=== PATIENT | male | born 1975 | race Caucasian/White ===

== ENCOUNTER → 2021-07-16 | Outpatient (CLI) | payer OTHER ==
--- NOTE | 2021-07-16 11:29 | CONS ---
CONSULTATION DATE OF SERVICE: 07/16/2021 This 46-year-old gentleman has been evaluated in Sleep Center for possible obstructive sleep apnea-hypopnea syndrome. 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 Consequently his sleep schedule on weekdays is from 10 a.m. until 2 p.m. and on weekends from 10 p.m. until around 3 a.m. Sometimes he has problems with falling asleep, has TV set in bedroom. He usually sleeps on the side position. He has loud snoring. He wakes up from sleep two times with up to two episodes of nocturia. No history of hypnagogic hallucinations, sleep paralysis or cataplexy. The patient feels sleepiness. [place] Sleepiness Scale increased to 10. He takes one nap around 7 or 8 p.m. because, again, he is a night-shift worker. He does feel refreshed after nap. No vivid dreams during naps. PAST MEDICAL HISTORY: Positive for increasing blood sugar, hyperlipidemia, obesity. PAST SURGICAL HISTORY: Left leg surgery for fracture of fibula. MEDICATIONS: 1. Atorvastatin 80 mg once a day. 2. Metformin 500 mg once a day. 3. Gemfibrozil 600 mg twice a day. SOCIAL HISTORY: Positive for 28-year pack/smoking; quit in 2019. Alcohol consumption: None at the present time. FAMILY HISTORY: Hypertension, diabetes, acid reflux, asthma, heart problems. REVIEW OF SYSTEMS: Multiple awakenings from sleep, sleepiness during the day. Loud snoring. No fevers. No double vision. No recent chest pain. No shortness of breath. No abdominal pain. No bleeding episodes. No blood in the urine. No seizure episodes. PHYSICAL EXAMINATION: GENERAL: Pleasant gentleman without distress. VITAL SIGNS: BP 135/89, HR 100, RR 15, height 5 feet 7 inches, weight 223, BMI 34.4, temperature 98.1. Neck size 17 inches in circumference and position of soft palate extremely low Mallampati 4. NECK: Supple, no JVD. Thyroid is not palpable. LUNGS: Clear to percussion and to auscultation. Good air exchange. No wheezing or rhonchi. HEART: S1, S2 regular. No murmurs, gallops, or rubs. ABDOMEN: Obese. Soft and nontender. Bowel sounds are present. No organomegaly appreciated. EXTREMITIES: No clubbing or cyanosis. BRASS PICKLER: Awake, alert, and oriented X3. Cranial nerves 2 to 7 intact. There is no fasciculation or atrophy. noted. No focal deficits observed. IMPRESSION: 1. Loud snoring, multiple awakenings from sleep, extremely low position of soft palate, Mallampati 4, wide neck, 17 inches in circumference, sleepiness. [place] Sleepiness Scale is 10, obstructive sleep apnea-hypopnea syndrome. 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 3. Obesity, BMI 34.4. 4. Increased blood sugar. 5. Diabetes mellitus. 6. Hyperlipidemia. 7. Status post left leg surgery for fracture of fibula several years ago. PLAN: 1. Polysomnography for evaluation of patient's breathing during sleep. 2. CPAP/BiPAP titration if sleep study confirms obstructive sleep apnea-hypopnea syndrome. 3. Preferable position during sleep on the side. 4. No driving if patient feels any sleepiness. 5. I will see patient for follow up visit to explain results of testing and following plan. Thank you very much for referring this patient for consultation. MMODL / IJN: [id number] /
--- NOTE | 2021-07-16 11:39 | CONS ---
CONSULTATION ADDENDUM: PHYSICAL EXAM: Neck size 17 inches in circumference and position of soft palate extremely low Mallampati 4. NECK: Supple, no JVD. Thyroid is not palpable. LUNGS: Clear to percussion and to auscultation. Good air exchange. No wheezing or rhonchi. HEART: S1, S2 regular. No murmurs, gallops, or rubs. ABDOMEN: Obese. Soft and nontender. Bowel sounds are present. No organomegaly appreciated. EXTREMITIES: No clubbing or cyanosis. RADIO TALK SHOW HOST: Awake, alert, and oriented X3. Cranial nerves 2 to 7 intact. There is no fasciculation or atrophy. noted. No focal deficits observed. IMPRESSION: 1. Loud snoring, multiple awakenings from sleep, extremely low position of soft palate, Mallampati 4, wide neck, 17 inches in circumference, sleepiness. Clarinda Sleepiness Scale is 10, obstructive sleep apnea-hypopnea syndrome. 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 3. Obesity, BMI 34.4. 4. Increased blood sugar. 5. Diabetes mellitus. 6. Hyperlipidemia. 7. Status post left leg surgery for fracture of fibula several years ago. PLAN: 1. Polysomnography for evaluation of patient's breathing during sleep. 2. CPAP/BiPAP titration if sleep study confirms obstructive sleep apnea-hypopnea syndrome. 3. Preferable position during sleep on the side. 4. No driving if patient feels any sleepiness. 5. I will see patient for follow up visit to explain results of testing and following plan. Thank you very much for referring this patient for consultation. Sincerely, Marco Platt MD, PhD, FAASM Diplomat of [place] [employer] Sleep Medicine Board of [place] Food Supervisor of [facility] [place] MMODL / AMENAN: [id number] /
== END ==
LOC: SLEEP 10:22
PROVIDERS: ATTEND Internal Medicine
DX: G47.33 Obstructive sleep apnea (adult) (pediatric) (principal); E66.9 Obesity, unspecified; Z68.34 Body mass index [BMI] 34.0-34.9, adult; E11.9 Type 2 diabetes mellitus without complications; E78.5 Hyperlipidemia, unspecified; Z98.890 Other specified postprocedural states; Z87.81 Personal history of (healed) traumatic fracture; Z79.84 Long term (current) use of oral hypoglycemic drugs; Z79.899 Other long term (current) drug therapy; Z87.891 Personal history of nicotine dependence
CPT/HCPCS: 99211

== ENCOUNTER → 2021-07-30 | Outpatient (CLI) | payer OTHER ==
--- NOTE | 2021-07-30 11:08 | XR ---
EXAMINATION TYPE: XR chest 2V DATE OF EXAM: 07/30/2021 COMPARISON: NONE TECHNIQUE: PA and lateral views submitted. HISTORY: Abnormal lung sounds FINDINGS: Subsegmental changes at both lung bases. No pleural effusion or pneumothorax. Heart size normal. Hype rtrophic and degenerative change the spine. No overt failure. IMPRESSION: 1. Basilar atelectasis or early infiltrate correlate clinically.
== END | disposition home or self-care (01) ==
LOC: RADXRMAIN 10:35
PROVIDERS: ATTEND Family Medicine
DX: M54.2 Cervicalgia (principal); R09.89 Other specified symptoms and signs involving the circulatory and respiratory systems
CPT/HCPCS: 71046

== ENCOUNTER → 2021-09-09 | Outpatient (CLI) | payer OTHER ==
--- NOTE | 2021-09-09 12:26 | XR ---
Left elbow and left humerus HISTORY: M79.622 PAIN IN LEFT UPPER ARM 2 views of the left elbow, 2 views of left humerus Bone mineralization, joint spaces and alignment are maintained. There is arthropathy at the acromiocl avicular joint. No acute fracture or dislocation. No elbow joint effusion. IMPRESSION: No acute abnormality. If biceps tendon injury is suspected clinically then elbow MRI may be of benefit
== END | disposition home or self-care (01) ==
LOC: RADXRMAIN 11:07
PROVIDERS: ATTEND Nurse Practitioner Adult Health
DX: M79.622 Pain in left upper arm (principal)

== ENCOUNTER → 2021-09-29 | Outpatient (CLI) | payer OTHER ==
--- NOTE | 2021-09-30 10:05 | MR ---
MRI left humerus HISTORY: Left arm pain Multiplanar multisequence imaging obtained through the left humerus. Correlation to brain film left e lbow, left humerus dated 09/09/2021 Muscle signal is normal. Bone marrow signal is unremarkable. There is no fracture or dislocation. Ent charly humerus is not included in the [id number]. There is artifact over the exam. No evident pectora lis muscle tear or biceps tendon tear despite exam not tailored for these diagnoses. No abnormal fluid collections. No evident adenopathy. IMPRESSION: No abnormality evident to account for patient's symptoms.
== END | disposition home or self-care (01) ==
LOC: RADMRIMAIN 07:51
PROVIDERS: ATTEND Nurse Practitioner Adult Health
DX: M79.622 Pain in left upper arm (principal)

== ENCOUNTER → 2021-11-25 | Outpatient (CLI) | payer OTHER ==
--- NOTE | 2021-11-25 13:39 | SFUN ---
SLEEP CENTER FOLLOW UP NOTE DATE OF SERVICE: 11/25/2021 This 46-year-old gentleman has been followed in Sleep Center for treatment of obstructive sleep apnea-hypopnea syndrome. Recently the patient had a polysomnogram and CPAP titration. Sleep study showed severe obstructive sleep apnea-hypopnea syndrome. I discussed with the patient in detail the results of diagnostic test and results of titration. During titration, respiration normalized. Subsequently the patient received a CPAP unit. Today is his first visit after starting to use CPAP equipment. The patient is able to use CPAP equipment every night. He sleeps better with the machine, feels better during the day. [place] Sleepiness Scale today is zero. I checked his CPAP unit. It is in automatic regimen. Range of the pressure is 7 to 14, average pressure 11.8, maximal 12.9. Usage is 100% of nights and 29/30 nights for more than 4 hours, average 6 hours 51 minutes. Leak is only 0.7 L/minute 95% of the time. Apnea-hypopnea index is only 0.2, which is absolutely perfect. MEDICATIONS: 1. Atorvastatin. 2. Metformin. 3. Gemfibrozil. PHYSICAL EXAMINATION: GENERAL: Pleasant patient in no distress. VITAL SIGNS: BP 121/81, HR 101, RR 14, weight 221.2, temperature 97.3. HEENT: PERRLA, EOMI, evaluation of oropharynx showed tongue protrudes midline. Extremely low position of soft palate; Mallampati IV. NECK: Supple, no JVD. Thyroid is not palpable. Neck measures 17 inches in circumference. LUNGS: Clear to percussion and to auscultation. Good air exchange. No wheezing or rhonchi. HEART: S1, S2 regular. No murmurs, gallops, or rubs. ABDOMEN: Slightly obese. EXTREMITIES: No clubbing or cyanosis. BAG CHECKER: Awake, alert, and oriented X3. Cranial nerves 2 to 7 intact. There is no fasciculation or atrophy. noted. No focal deficits observed. IMPRESSION: 1. Severe obstructive sleep apnea-hypopnea syndrome; apnea-hypopnea index 60.8. Patient demonstrated 100% compliance with treatment. Totally normal respiration on CPAP. Benefitting from treatment. 2. Obesity. 3. History of diabetes mellitus. 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 5. Hyperlipidemia. 6. Status post left leg surgery for fracture of fibula several years ago. PLAN: 1. Patient will continue to use PAP equipment every night for the whole night. 2. Sleep hygiene with regular time in bed for at least 7-1/2 to 8 hours. 3. Precautions related to driving. No driving if feeling sleepiness. 4. I will maintain all necessary prescription for PAP supplies including mask, tube, filters. 5. Watching weight. 6. I discussed with the patient how to adjust humidity and position of machine during the night. 7. Follow-up visit in 6 months or earlier if patient has any problems. Thank you very much for allowing me to participate in the management of your patient. Sincerely, Marco Platt MD, PhD, FAASM Diplomat of [place] [employer] Sleep Medicine Board of [place] [employer] Medicine Road Oiler of [facility] [place] MMODL / AMENAN: [id number] /
== END ==
LOC: SLEEP 10:37
PROVIDERS: ATTEND Internal Medicine
DX: G47.33 Obstructive sleep apnea (adult) (pediatric) (principal); Z99.89 Dependence on other enabling machines and devices; E66.9 Obesity, unspecified; E11.9 Type 2 diabetes mellitus without complications; E78.5 Hyperlipidemia, unspecified; Z98.890 Other specified postprocedural states; Z79.84 Long term (current) use of oral hypoglycemic drugs

== ENCOUNTER → 2022-05-05 | Outpatient (CLI) | payer OTHER ==
[2022-05-05 14:19] LABS: Basophils # (A) 0.06 X 10*3/uL (0.00-0.10); Basophils % (A) 0.8 %; Eosinophils # (A) 0.28 X 10*3/uL (0.04-0.35); Eosinophils % (A) 3.5 %; HCT 44.4 % (39.6-50.0); HGB 15.7 g/dL (13.0-17.0); Immature Grans, Automated 0.6 %; Lymphocytes # (A) 1.54 X 10*3/uL (0.90-5.00); Lymphocytes % (A) 19.3 %; MCH 32.4 pg (27.0-32.0); MCHC 35.4 g/dL (32.0-37.0); MCV 91.5 fL (80.0-97.0); Mean Platelet Volume 11.9 fL (9.5-12.2); Monocytes % (A) 11.3 %; NRBC Per 100 WBC 0 /100 WBCS (0.0-0.0); Neutrophils # (A) 5.13 X 10*3/uL (1.80-7.70); Neutrophils % (A) 64.5 %; Platelet Count 268 X 10*3/uL (140-440); RBC 4.85 X 10*6/uL (4.40-5.60); RDW 12.2 % (11.5-14.5); WBC 7.96 X 10*3/uL (4.50-10.00)
[2022-05-05 14:25] LABS: ALT 33 U/L (10-49); AST 23 U/L (14-35); Albumin 4.8 g/dL (3.8-4.9); Alkaline Phosphatase 87 U/L (41-126); BUN/Creat Ratio 12.78 Ratio (12.00-20.00); Blood Urea Nitrogen 11.5 mg/dL (9.0-27.0); Calcium 9.5 mg/dL (8.7-10.3); Carbon Dioxide 25.2 mmol/L (20.0-27.5); Chloride 100 mmol/L (96-109); Chol/HDL Ratio 4.41 Ratio; Creatine Kinase 209 U/L (35-257); Glucose 105 mg/dL (70-110); LDL Cholesterol,Calculated 96.7 mg/dL (0.0-131.0); Non-African American GFR(CKD) 103.5 (60.0-200.0); Potassium 4.4 mmol/L (3.5-5.5); Sodium 137 mmol/L (135-145); Total Protein 7.8 g/dL (6.2-8.2)
== END | disposition home or self-care (01) ==
LOC: LABWHC1 07:59
PROVIDERS: ATTEND Family Medicine
DX: E78.5 Hyperlipidemia, unspecified (principal)
CPT/HCPCS: 36415; 80053; 80061; 82550; 85025

== ENCOUNTER → 2022-06-17 | Outpatient (CLI) | payer OTHER ==
--- NOTE | 2022-06-17 12:36 | P.PN ---
Subjective DATE: 06/17/2022 FOLLOW UP VISIT. Patient with obstructive sleep apnea hypopnea syndrome return to sleep center for follow-up visit. Information from previous visit have been reviewed. Patient is using PAP equipment every night for the whole night, getting PAP supplies in time. The patient does not have significant problems with the mask, PAP unit and humidification. Haugen sleepiness scale is 2, which is normal. I checked information from PAP unit. PAP unit pressure 7-14, average 11.8 cm H2O. Usage is 100 % for more then 4 hours, average 5 hours 20 minutes per night. Leak is 3.9 l/m, which is in acceptable range. Apnea Hypopnea Index is 0.4, which is normal. MEDICATIONS:1. Metformin 500 mg once a day 2. Atorvastatin 3. Lisinopril 4. Gemfibrozil During physical exam: GENERAL: A pleasant patient without any distress. VITAL SIGNS: BP 117/77, HR 91, RR 16 , weight 222.4, temperature 97.8, oxygen saturation at room air 97 % . HEENT: PERRLA, EOMI.low position of soft palate, Mallapati 4 . NECK: Supple. No JVD. LUNGS: Clear to percussion and to auscultation. Good air exchange. No wheezing or rhonchi. HEART: S1, S2 regular. ABDOMEN: Soft and nontender.[] EXTREMITIES: No clubbing or cyanosis. PBX INSTALLER: Awake, alert, and oriented x3. No focal deficit. Impressions: 1. Obstructive sleep apnea-hypopnea syndrome. Patient demonstrated great compliance with treatment, benefiting from treatment. 2. Obesity. 3. Diabetes mellitus. 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 5. Hyperlipidemia. 6. Status post surgery for left fibula fracture in the past. Plan: 1. Continue using PAP equipment every night for the whole night. 2. To change air filter at least 1-2 times per month. 3. PAP unit should stay lower then position of the head. 4. Advised patient to remove all remaining water from humidifier canister daily and make it dry after each usage. Refill canister with fresh distilled water before each usage. 5. Sleep hygiene with regular time in bed for at least 8 hours. 6. Precautions related to driving. No driving if feel any sleepiness. 7. I will maintain prescription for PAP supplies including mask, tube, filters. 8. Follow up visit in 6 months or earlier if patient has any problems. 9. Watching and losing weight. Thank you very much for allowing me to participate in the management of your patient. Marco Platt MD, PhD, FAASM. Diplomat of [place] Board [employer] Sleep Medicine, Sleep Medicine Board by [place] [employer] of Internal Medicine Loom Changer of [facility] [place]
== END ==
LOC: SLEEP 09:56
PROVIDERS: ATTEND Internal Medicine
DX: G47.33 Obstructive sleep apnea (adult) (pediatric) (principal); Z99.89 Dependence on other enabling machines and devices; E11.9 Type 2 diabetes mellitus without complications; E78.5 Hyperlipidemia, unspecified; Z79.84 Long term (current) use of oral hypoglycemic drugs; S82.832A Other fracture of upper and lower end of left fibula, initial encounter for closed fracture; Y99.9 Unspecified external cause status

== ENCOUNTER → 2022-12-22 | Outpatient (CLI) | payer OTHER ==
--- NOTE | 2022-12-22 11:30 | P.PN ---
Subjective DATE: 12/22/2022 FOLLOW UP VISIT. Patient with obstructive sleep apnea hypopnea syndrome return to sleep center for follow-up visit. Information from previous visit have been reviewed. Patient is using PAP equipment every night for the whole night, getting PAP supplies in time. The patient does not have significant problems with the mask, PAP unit. Patient wants to increase humidity in his mask, he doesn't know how to adjust humidity. Conde sleepiness scale is 2, which is perfect. I checked information from PAP unit. PAP unit pressure 7-14, average 11.4 cm H2O. Usage is 100 % for more then 4 hours, average 5.5 hours per night. Leak is 4.5 l/m, which is in acceptable range. Apnea Hypopnea Index is perfect 0.1. MEDICATIONS:1. Atorvastatin 80 mg once a day 2. Lisinopril 5 mg once a day 3. Gemfibrozil 60 mg twice a day During physical exam: GENERAL: A pleasant patient without any distress. VITAL SIGNS: BP 117/77, HR 99, RR 12, weight 231, temperature 97.7, oxygen saturation at room air 94 % . HEENT: PERRLA, EOMI.low position of soft palate, Mallapati 4 . NECK: Supple. No JVD. LUNGS: Clear to percussion and to auscultation. Good air exchange. No wheezing or rhonchi. HEART: S1, S2 regular. ABDOMEN: Soft and nontender. Slightly obese EXTREMITIES: No clubbing or cyanosis. BRIDGE PAINTER HELPER: Awake, alert, and oriented x3. No focal deficit. Impressions: 1. Obstructive sleep apnea-hypopnea syndrome. Patient demonstrated great compliance with treatment, benefiting from treatment. 2. Obesity body mass index 35.6. 3. Hyperlipidemia. 4. History of diabetes mellitus. 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 6. Status post surgical treatment of fracture of left fibula in the past. I teach patient how to adjust humidity in CPAP unit. Humidity was increased to the level of 6. Plan: 1. Continue using PAP equipment every night for the whole night. 2. To change air filter at least 1-2 times per month. 3. PAP unit should stay lower then position of the head. 4. Advised patient to remove all remaining water from humidifier canister daily and make it dry after each usage. Refill canister with fresh distilled water before each usage. 5. Sleep hygiene with regular time in bed for at least 8 hours. 6. Precautions related to driving. No driving if feel any sleepiness. 7. I will maintain prescription for PAP supplies including mask, tube, filters. 8. Watching and losing weight. 9. Follow up visit in 6 months or earlier if patient has any problems. Thank you very much for allowing me to participate in the management of your patient. Marco Platt MD, PhD, FAASM. Diplomat of [place] [employer] Sleep Medicine, Sleep Medicine Board by [place] [employer] Retail Service Specialist of [facility] [place]
== END ==
LOC: SLEEP 10:22
PROVIDERS: ATTEND Internal Medicine
DX: G47.30 Sleep apnea, unspecified (principal); E11.9 Type 2 diabetes mellitus without complications; E66.9 Obesity, unspecified; E78.5 Hyperlipidemia, unspecified; G47.33 Obstructive sleep apnea (adult) (pediatric); R63.4 Abnormal weight loss; Z68.35 Body mass index [BMI] 35.0-35.9, adult; Z79.899 Other long term (current) drug therapy; Z98.890 Other specified postprocedural states; Z99.89 Dependence on other enabling machines and devices
CPT/HCPCS: 99212

== ENCOUNTER → 2023-07-07 | Outpatient (CLI) | payer OTHER ==
--- NOTE | 2023-07-07 11:09 | P.PN ---
Subjective DATE: 07/07/2023 FOLLOW UP VISIT. Patient with obstructive sleep apnea hypopnea syndrome return to sleep center for follow-up visit. Information from previous visit have been reviewed. Patient is using PAP equipment every night for the whole night, getting PAP supplies in time. The patient does not have significant problems with the mask, PAP unit and humidification. Sharon sleepiness scale is 2, which is perfect. I checked information from PAP unit. PAP unit pressure 7-14, average 11.6 cm H2O. Usage is 100 % for more then 4 hours, average 5.5 hours per night. Leak is 6.2 l/m, which is in acceptable range. Apnea Hypopnea Index is 0.2, which is normal. MEDICATIONS:1. Lisinopril 5 mg once a day 2. Atorvastatin 80 mg once a day 3. Gemfibrozil 600 mg twice a day During physical exam: GENERAL: A pleasant patient without any distress. VITAL SIGNS: BP 132/88, HR 106, RR 18 , weight 240.8, temperature 98.3, oxygen saturation at room air 96 % . HEENT: PERRLA, EOMI.low position of soft palate, Mallapati 4 . NECK: Supple. No JVD. LUNGS: Clear to percussion and to auscultation. Good air exchange. No wheezing or rhonchi. HEART: S1, S2 regular. ABDOMEN: Soft and nontender.[] EXTREMITIES: No clubbing or cyanosis. COACH PROFESSIONAL ATHLETES: Awake, alert, and oriented x3. No focal deficit. Impressions: 1. Obstructive sleep apnea-hypopnea syndrome. Patient demonstrated great compliance with treatment, benefiting from treatment. 2. Obesity, patient increased weight from 9 pounds comparing the previous visit. 3. Hyperlipidemia. 4. History of diabetes mellitus. 5. Status post surgical treatment of left fibula fracture in the past. 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 Plan: 1. Continue using PAP equipment every night for the whole night. 2. To change air filter at least 1-2 times per month. 3. PAP unit should stay lower then position of the head. 4. Advised patient to remove all remaining water from humidifier canister daily and make it dry after each usage. Refill canister with fresh distilled water before each usage. 5. Sleep hygiene with regular time in bed for at least 8 hours. 6. Precautions related to driving. No driving if feel any sleepiness. 7. I will maintain prescription for PAP supplies including mask, tube, filters. 8. Follow up visit in 6 months or earlier if patient has any problems. 9. Watching and losing weight. Thank you very much for allowing me to participate in the management of your patient. Marco Platt MD, PhD, FAASM. Diplomat of [place] [employer] Sleep Medicine, Sleep Medicine Board by [place] [employer] Work Counselor of [facility] [place]
== END ==
LOC: 3 N SLEEP 10:28
PROVIDERS: ATTEND Internal Medicine
DX: G47.33 Obstructive sleep apnea (adult) (pediatric) (principal); E66.9 Obesity, unspecified; E78.5 Hyperlipidemia, unspecified; E11.9 Type 2 diabetes mellitus without complications; Z79.899 Other long term (current) drug therapy; Z98.890 Other specified postprocedural states; Z99.89 Dependence on other enabling machines and devices
CPT/HCPCS: 99212

== ENCOUNTER → 2024-02-08 | Outpatient (CLI) | payer OTHER ==
[2024-02-08 11:05] VITALS: BP 111/74; PULSE 86; RESP 16; TEMP 98.1
--- NOTE | 2024-02-08 11:53 | P.PROGSL ---
Subjective DATE: 02/08/2024 FOLLOW UP VISIT. Patient with obstructive sleep apnea hypopnea syndrome return to sleep center for follow-up visit. Information from previous visit have been reviewed. Patient is using PAP equipment every night for the whole night, getting PAP supplies in time. The patient does not have significant problems with the mask, PAP unit and humidification. Eugene sleepiness scale is, which is perfect 2. I checked information from PAP unit. PAP unit pressure 7-14, average 11.0 cm H2O. Usage is 100% and 93% for more then 4 hours, average 4.75 hours per night. Leak is 1.2 l/m, which is in acceptable range. Apnea Hypopnea Index is 0, which is normal. MEDICATIONS: Please see below During physical exam: GENERAL: A pleasant patient without any distress. VITAL SIGNS: Please see below weight 207 pounds, BMI 32.7. HEENT: PERRLA, EOMI.low position of soft palate, Mallapati 4 . NECK: Supple. No JVD. LUNGS: Clear to percussion and to auscultation. Good air exchange. No wheezing or rhonchi. HEART: S1, S2 regular. ABDOMEN: Soft and nontender.[] EXTREMITIES: No clubbing or cyanosis. VENEER SPLICER: Awake, alert, and oriented x3. No focal deficit. Impressions: 1. Obstructive sleep apnea-hypopnea syndrome. Patient demonstrated great compliance with treatment, benefiting from treatment. 2. Mild obesity, patient lost 33 pounds comparing with previous visit, present BMI 32.7. 3. Hyperlipidemia. 4. History of diabetes mellitus. 5. Hyperlipidemia. Plan: 1. Continue using PAP equipment every night for the whole night. 2. To change air filter at least 1-2 times per month. 3. PAP unit should stay lower then position of the head. 4. Advised patient to remove all remaining water from humidifier canister daily and make it dry after each usage. Refill canister with fresh distilled water before each usage. 5. Sleep hygiene with regular time in bed for at least 8 hours. 6. Precautions related to driving. No driving if feel any sleepiness. 7. I will maintain prescription for PAP supplies including mask, tube, filters. 8. Follow up visit in 6 months or earlier if patient has any problems. 9. Watching and continue losing weight. Thank you very much for allowing me to participate in the management of your patient. Marco Platt MD, PhD, FAASM. Diplomat of [employer] Sleep Medicine, Sleep Medicine Board by [employer] Medicine Weight Checker of [facility] [place] Objective - Vital Signs Vital Signs: Vital Signs Temp 98.1 F 02/08/24 11:01 Pulse 86 02/08/24 11:01 Resp 16 02/08/24 11:01 BP 111/74 02/08/24 11:01 Pulse Ox 96 02/08/24 11:01 FiO2 Intake & Output 02/07/24 02/08/24 02/08/24 18:59 06:59 18:59 Weight 93.894 kg Home Medications: Home Medications Medication Instructions Recorded Confirmed Type Atorvastatin [Lipitor] 80 mg PO HS 02/08/24 02/08/24 History gemfibroziL [Lopid] 600 mg PO DAILY 02/08/24 02/08/24 History lisinopriL [Zestril] 5 mg PO DAILY 02/08/24 02/08/24 History
== END ==
LOC: 3 N SLEEP 10:38
PROVIDERS: ATTEND Internal Medicine
DX: G47.33 Obstructive sleep apnea (adult) (pediatric) (principal); E66.9 Obesity, unspecified; E78.5 Hyperlipidemia, unspecified; Z99.89 Dependence on other enabling machines and devices; Z68.32 Body mass index [BMI] 32.0-32.9, adult; Z86.39 Personal history of other endocrine, nutritional and metabolic disease
CPT/HCPCS: 99212